=== PATIENT | male | born 1990 | race Caucasian/White ===

== ENCOUNTER 2017-05-12 11:00 | Emergency (ER) | payer BC, OTHER ==
[2017-05-12 11:43] VITALS: BP 140/96
--- NOTE | 2017-05-12 12:42 | EDM.PDOC ---
ED HPI GENERAL MEDICAL PROBLEM - General Chief Complaint: Gastrointestinal Problem Stated Complaint: CHEST PAIN Time Seen by Provider: 05/12/17 12:25 Source of Information: Reports: Patient, Family History Limitations: Reports: No Limitations - History of Present Illness INITIAL COMMENTS - FREE TEXT/NARRATIVE: Mike presents today with complaints of cough for 7 weeks with epigastric/ sternal pain. He reports the epigastric/sternal pain sometimes radiated to his left chest. He denies palpitations, syncope, or SOB. He also states about 7 weeks ago he developed body aches, fever, chills with the cough for several days then became better. He has not taken any OTC medications. - Related Data Allergies Allergy/AdvReac Type Severity Reaction Status Date / Time No Known Allergies Allergy Verified 01/11/13 10:37 Home Meds: Home Meds NK [No Known Home Meds] 05/12/17 [History] Past Medical History - Past Surgical History GI Surgical History: Reports: Cholecystectomy, Hernia, Inguinal Social & Family History - Tobacco Use Smoking Status *Q: Never Smoker Second Hand Smoke Exposure: No - Alcohol Use Days Per Week of Alcohol Use: 0 - Recreational Drug Use Recreational Drug Use: No ED ROS GENERAL - Review of Systems Review Of Systems: See Below Constitutional: Denies: Fever, Chills, Malaise, Weakness HEENT: Reports: Other (Cough with scant mucus production for 7 weeks without improvement). Denies: Ear Pain, Rhinitis, Sinus Problem, Throat Pain, Throat Swelling Respiratory: Reports: Pleuritic Chest Pain, Cough. Denies: Shortness of Breath , Wheezing, Hemoptysis Cardiovascular: Reports: Other (Mid-sternal/epigastric pain with radiation to left chest at times. ). Denies: Dyspnea on Exertion, Edema, Lightheadedness, Orthopnea, Palpitations, PND, Syncope Endocrine: Reports: No Symptoms GI/Abdominal: Reports: No Symptoms : Reports: No Symptoms Musculoskeletal: Reports: No Symptoms Skin: Reports: No Symptoms Neurological: Reports: No Symptoms Psychiatric: Reports: No Symptoms Hematologic/Lymphatic: Reports: No Symptoms Immunologic: Reports: No Symptoms ED EXAM, GENERAL - Physical Exam Exam: See Below Free Text/Narrative:: Desmond is an alert, oriented and pleasant 27 year old male presenting to the ER today with complaints of cough for 7 weeks. He denies significant mucus production with cough. He also complaints of midsternal/epigastric pain for 7 weeks. The pain is reproducible with palpation and sometimes feels cramping or like a spasm. Exam Limited By: No Limitations General Appearance: Alert, WD/WN, No Apparent Distress Eye Exam: Bilateral Eye: EOMI, PERRL Ears: Normal External Exam, Normal Canal, Hearing Grossly Normal, Normal TMs Ear Exam: Bilateral Ear: Auricle Normal, Canal Normal, TM normal Nose: Normal Inspection, Normal Mucosa, No Blood. No: Nasal Swelling, Nasal Drainage Throat/Mouth: Normal Inspection, Normal Lips, Normal Teeth, Normal Gums, Normal Oropharynx, Normal Voice, No Airway Compromise Head: Atraumatic, Normocephalic Neck: Normal Inspection, Supple, Non-Tender, Full Range of Motion. No: Lymphadenopathy (R), Lymphadenopathy (L) Respiratory/Chest: No Respiratory Distress, Other (Noted faint crackles to Right mid-lower lobe. ). No: No Accessory Muscle Use, Respiratory Distress, Rhonchi, Wheezing, Stridor, Pleural Rub, Accessory Muscle Use, Retractions, Splinting Cardiovascular: Normal Peripheral Pulses, Regular Rate, Rhythm, No Edema, No Gallop, No Murmur, No Rub Peripheral Pulses: 2+: Radial (L), Radial (R), Dorsalis Pedis (L), Dorsalis Pedis (R) GI/Abdominal: Normal Bowel Sounds, Soft, Non-Tender, No Organomegaly, No Distention, No Abnormal Bruit, No Mass Back Exam: Normal Inspection, Full Range of Motion. No: CVA Tenderness (R), CVA Tenderness (L) Extremities: Normal Inspection, Normal Range of Motion, Non-Tender, No Pedal Edema, Normal Capillary Refill Neurological: Alert, Oriented, CN II-XII Intact, Normal Cognition, Normal Gait, No Motor/Sensory Deficits Psychiatric: Normal Affect, Normal Mood Skin Exam: Warm, Dry, Intact, Normal Color, No Rash Lymphatic: No Adenopathy EKG INTERPRETATION EKG Date: 05/12/17 Rhythm: NSR Dudley: Normal P-Wave: Present QRS: Normal ST-T: Normal QT: Normal EKG Interpretation Comments: Normal sinus without acute findings. Course - Vital Signs Last Recorded V/S: Last Vital Signs Temp 37.1 C 05/12/17 11:42 Pulse 97 05/12/17 11:42 Resp 16 05/12/17 11:42 BP 140/96 H 05/12/17 11:42 Pulse Ox 96 05/12/17 11:42 - Orders/Labs/Meds Orders: Active Orders 24 hr Category Date Time Status EKG Documentation Completion [RC] ASDIRECTED Care 05/12/17 12:36 Active EKG 12 Lead [EK] Routine Ther 05/12/17 12:36 Ordered - Radiology Interpretation Free Text/Narrative:: PA/JOSELO chest x-ray wet read, no acute findings noted. Radiology read pending. Departure - Departure Time of Disposition: 13:14 Disposition: Home, Self-Care 01 Condition: Good Clinical Impression: Upper respiratory infection, Costochondritis Instructions: Upper Respiratory Infection, Adult, [id number], Costochondritis , [id number] Referrals: PCP,None [Primary Care Provider] - Forms: ED Department Discharge Additional Instructions: You have been evaluated and treated in the emergency room today for upper respiratory infection and costochondritis. EKG and chest x-ray were normal. Take azithromycin 500mg PO today then 250mg PO daily for the next 4 days. Take chlorpheniramine 4mg PO three times a day as needed. Ibuprofen 800mg PO three times a day as needed for pain. You can also take acetaminophen as needed for pain. Drink plenty of fluids to stay hydrated. If your epigastric pain continues follow up with your primary provider for possible acid reducing medication. If you feel heart burn or acid reflux you may take omeprazole 20mg PO daily as needed. Follow up with Dr. Zhong in 14 days for recheck. Return at any time for worsening, issues or concerns. - My Orders Last 24 Hours: My Active Orders 05/12/17 12:36 EKG Documentation Completion [RC] ASDIRECTED EKG 12 Lead [EK] Routine - Assessment/Plan Last 24 Hours: My Active Orders 05/12/17 12:36 EKG Documentation Completion [RC] ASDIRECTED EKG 12 Lead [EK] Routine Plan: Patient evaluated and treated in the emergency room today for upper respiratory infection and costochondritis. EKG and chest x-ray were normal. Take azithromycin 500mg PO today then 250mg PO daily for the next 4 days. Take chlorpheniramine 4mg PO three times a day as needed. Ibuprofen 800mg PO three times a day as needed for pain. He can also take acetaminophen as needed for pain. Drink plenty of fluids to stay hydrated. If epigastric pain continues follow up with primary provider for possible acid reducing medication. If he feels heart burn or acid reflux he may take omeprazole 20mg PO daily as needed. Follow up with Dr. Zhong in 14 days for recheck. Return at any time for worsening, issues or concerns.
--- NOTE | 2017-05-12 13:17 | CR ---
Chest 2V FINDINGS: The heart and vascular structures are normal in appearance. No infiltrates or effusions are demonstrated. The skeletal structures are unremarkable. IMPRESSION: Negative exam.
== END 2017-05-12 13:35 | disposition home or self-care (01) ==
LOC: JP.ED 11:00
DX: M94.0 Chondrocostal junction syndrome [Tietze] (principal); J06.9 Acute upper respiratory infection, unspecified
CPT/HCPCS: 71046; 71046-26; 93005; 99285-25